=== PATIENT | male | born 1990 | race Caucasian/White ===

== ENCOUNTER 2019-10-23 16:19 | Emergency (ER) | payer OTHER ==
[~2019-10-23] VITALS: Ht 172.7 cm; Wt 81.6 kg
[2019-10-23] MEDS ORDERED: DICLOFENAC SODI75 MG PO (18:28)
== END 2019-10-23 19:03 | disposition home or self-care (01) ==
LOC: ER 16:19
DX: M72.2 Plantar fascial fibromatosis (principal)